=== PATIENT | male | born 1945 | race Caucasian/White ===

== ENCOUNTER → 2018-02-05 | Outpatient (CLI) | payer OTHER, BC ==
[2018-02-05 12:51] LABS: BLOOD UREA NITROGEN 17 mg/dl (7-18); CALCIUM 9.2 mg/dl (8.5-10.1); CARBON DIOXIDE 28 mmol/L (21-32); CREATININE 1.16 mg/dl (0.60-1.40); GLUCOSE 121 mg/dl (70-99); POTASSIUM 4.1 mmol/L (3.5-5.1); SODIUM 138 mmol/L (136-145)
[2018-02-05 12:56] LABS: HEMOGLOBIN A1C 6.4 % (4.5-5.6)
== END | disposition home or self-care (01) ==
LOC: C.LABPBG 10:41
PROVIDERS: ATTEND Internal Medicine Geriatric Medicine
DX: I10 Essential (primary) hypertension (principal); R73.9 Hyperglycemia, unspecified

== ENCOUNTER → 2018-03-18 | Outpatient (CLI) | payer OTHER, BC ==
[2018-03-18 17:07] LABS: BASO % 0.5 %; BASO ABS # 0.01 K/uL (0-0.2); EOS % 2.3 %; EOS ABS # 0.05 K/uL (0-0.5); HEMATOCRIT 40.3 % (42-52); HEMOGLOBIN 13.6 g/dL (14.0-18.0); IG# 0.01 K/uL (0.00-0.02); LYMPH % 19.4 %; LYMPH ABS # 0.43 K/uL (1.2-3.4); MEAN CELL VOLUME 86.3 fL (80-100); MEAN CORPUSCULAR HEMOGLOBIN 29.1 pg (25-34); MEAN CORPUSCULAR HGB CONC 33.7 g/dl (32-36); MEAN PLATELET VOLUME 10.5 fL (7.4-10.4); MONO % 19.8 %; MONO ABS # 0.44 K/uL (0.11-0.59); NEUT % 57.5 %; NEUT ABS # 1.28 K/uL (1.4-6.5); PLATELET COUNT 144 K/uL (130-400); RED CELL DISTRIBUTION WIDTH CV 13.3 % (11.5-14.5); WHITE BLOOD COUNT 2.22 K/uL (4.8-10.8)
== END | disposition home or self-care (01) ==
LOC: C.LABPBG 11:53
PROVIDERS: ATTEND Family Medicine
DX: R68.83 Chills (without fever) (principal); R61 Generalized hyperhidrosis; W57.XXXA Bitten or stung by nonvenomous insect and other nonvenomous arthropods, initial encounter

== ENCOUNTER 2022-07-03 09:13 | Inpatient (IN) ==
[2022-07-03] MEDS ORDERED: SODIUM CHLORIDE 0.9% 1000ML 1,000 ML IV ONE (09:29)
[2022-07-03 09:46] LABS: Hematocrit (blood only) 39.8 % (40.1-51.0); Hemoglobin 12.8 g/dl (14.0-18.0); Mean Corpuscular Hemoglobin 29.5 pg (25.0-34.0); Mean Corpuscular Hgb Conc 32.2 g/dL (32.0-36.0); Mean Corpuscular Volume 91.7 fL (80.0-100.0); Mean Platelet Volume 10.6 fL (9.4-12.4); Platelet Count 177 K/uL (130-400); RDW Coefficient of Variation 13.8 % (11.5-14.5); RDW Standard Deviation 47.1 fL (36.4-46.3); Red Blood Count 4.34 M/uL (4.63-6.08); White Blood Count 7.23 K/ul (4.8-10.8)
[2022-07-03 09:55] LABS: Prothrombin Time 10.9 Seconds (9.0-12.0)
[2022-07-03] MEDS ORDERED: cefTRIAXone SODIUM 2,000 MG/70 ML BAG IV STA (09:56)
[2022-07-03 10:02] LABS: Albumin Globulin Ratio 1.2 (0.9-2); Albumin Level 3.5 gm/dl (3.4-5.0); Bilirubin,Total 0.5 mg/dl (0.2-1.0); Calcium 8.4 mg/dl (8.5-10.1); Creatinine Clr Calc Pharmacy 19.5 ml/min; Est GFR (African American) 16.2 ml/min; Magnesium 1.2 mg/dl (1.7-2.4); Potassium 4.8 mmol/L (3.5-5.1); Total Protein 6.5 gm/dl (6.0-8.3)
--- NOTE | 2022-07-03 10:02 | XRay Report ---
SINGLE VIEW CHEST CLINICAL HISTORY: Cough and dyspnea. FINDINGS: An AP, portable, upright chest radiograph is obtained. No prior studies are available for c omparison at the time of dictation. The heart is enlarged noting atherosclerotic calcification of the thoracic aorta. The pulmonary vasculature is noncongested. There is left basilar consolidation. Scar ring/atelectasis is seen at the right lung base. Question a small left pleural effusion. No pneumotho rax is seen. The skeletal structures are osteopenic. The bony thorax is grossly intact. IMPRESSION: 1. Cardiomegaly without radiographic evidence of congestive failure. 2. There is left basilar consolidation. Correlate clinically for evidence of pneumonia/aspiration pne umonitis. Radiographic follow-up to resolution is recommended. ACT 112: Negative or not required by law. Electronically signed by: Andi Andrews M.D. 07/03/2022 10:00 AM
[2022-07-03 10:08] LABS: Troponin I High Sensitivity 12.2 pg/ml (0-20)
[2022-07-03 10:15] LABS: Basophils # (auto) 0.01 K/uL (0-0.2); Basophils % (auto) 0.1 %; Echinocytes 1+; Immature Granulocytes # (auto) 0.03 K/uL (0.00-0.02); Immature Granulocytes % (auto) 0.4 %; Lymphocytes # (auto) 0.63 K/uL (1.2-3.4); Lymphocytes % (auto) 8.7 %; Monocytes # (auto) 0.65 K/uL (0.24-0.82); Neutrophils # (auto) 5.91 K/uL (1.4-6.5); Neutrophils % (auto) 81.8 %
[2022-07-03 10:19] LABS: iSTAT Arterial Blood Gas pCO2 30 mmHg (35-46); iSTAT Arterial Blood Gas pH 7.33 (7.35-7.45)
[2022-07-03 10:20] LABS: iSTAT Arterial Blood Gas HCO3 16 meg/L (19-24); iSTAT Arterial Blood Gas pO2 71 mmHg (80-95); iSTAT Carbon Dioxide 16 mmol/L (24-31); iSTAT Sample Type Arterial
[2022-07-03] MEDS ORDERED: ACETAMINOPHEN 1,000 MG/100 ML VIAL IV STA (10:32)
--- NOTE | 2022-07-03 10:32 | Emergency Department Note ---
History of Present Illness General Chief complaint: Shortness of Breath/Dyspnea Stated complaint: SOB, COUGH, SORE THROAT Time Seen by Provider: 07/03/22 09:29 Source: patient Mode of arrival: wheelchair Limitations: physical limitation History of Present Illness Provider complaint: Shortness of breath, cough, sore throat Onset (ago): day(s) 5 Maximum Pain Intensity: 6 This is a 76-year-old male presents emergency department due to concern for cough, sore throat, and increased shortness of breath. Patient states he has been sick for 5 days. Patient does have some difficulty answering as he is very tachypneic with increased work of breathing and appears very short of breath. Patient denied any history of asthma, COPD, or prior tobacco abuse. He denies any history of heart problems. Patient states he does not wear oxygen at home. Patient states he has not had any nasal congestion or rhinorrhea. He states his cough is nonproductive however he does feel short of breath. Patient states he also feels weak and lightheaded and admits that he has hardly had anything to eat in the last 5 days. He denies any known sick contacts. I was overhead emergently to the patient's room due to concern for hypoxia, hypotension, tachypnea, increased work of breathing, and overall poor initial impression. RT was immediately contacted for additional respiratory support as patient was rucker in color, tachypneic, with increased work of breathing and sats were 89 to 90% on nonrebreather at 12 to 15 L/min. Pt seen during a time of high acuity and national emergency pandemic while wearing PPE. Home Medications Medication Instructions Recorded Confirmed Type omeprazole 20 mg tablet,delayed 20 mg PO DAILY #90 tabs 09/11/21 01/02/22 Rx release lisinopril 40 mg tablet 40 mg PO DAILY #90 tabs 11/20/21 01/02/22 Rx simvastatin 20 mg tablet 20 mg PO QPM #90 tabs 11/20/21 01/02/22 Rx metoprolol tartrate 50 mg tablet 50 mg PO BID #180 tabs 01/11/22 Rx amlodipine 10 mg tablet 10 mg PO DAILY #90 tabs 03/13/22 Rx allopurinol 100 mg tablet 200 mg PO DAILY #180 tabs 04/12/22 Rx Allergies Allergy/AdvReac Type Severity Reaction Status Date / Time No Known Drug Allergies Allergy Verified 01/02/22 13:02 Past Med/Surg History Medical History Anemia Chronic kidney disease, stage 3 (moderate) Diabetes mellitus, type 2 Dyslipidemia Gastroesophageal reflux disease Gout Hypertension Tubular adenoma of colon Surgical History H/O esophagogastroduodenoscopy (07/2014) gastric polyps, reflux esophagitis, hiatal hernia Status post surgery Palatoplasty for cleft palate Family History Brother Atrial fibrillation Sleep apnea BPH (benign prostatic hyperplasia) Brother Smoker Bladder cancer Mother , age 93 Coronary heart disease Father , age 85 Coronary heart disease Myocardial infarction Brother No problems noted. Sister No problems noted. Denies family history of Ovarian cancer Prostate cancer Breast cancer Colorectal cancer Social History Smoking Status: Never smoker Tobacco Type: Smokeless Tobacco (Dip or Chew) Age Started Using Tobacco: 13; Second Hand Exposure: No; Hx Alcohol Use: Yes Alcohol type: beer Alcohol type Comment: 10-14 Alcohol Intake Frequency: 2-4 x/Month Hx Substance Use: No Preferred Language: Greenlandic Communication Ability: Effective Visual Impairment: Limited Hearing Ability: Normal [employer] Sales Representative Required: No Beliefs That Will Affect Care: None marital status: Current Living Situation: Spouse current occupational status: employed and retired current occupation: accounting How many Children do You have: 2 Feels Safe at Home: Yes Childhood Exposure to Second-Hand Smoke: No caffeine: No during the past year weight has: remained stable Dental Care, Regularly: Yes Physical Activity Frequency: 3-4 Times per Week Seatbelt Use: always Sunscreen Use: No Assistive Devices: None Review of Systems See HPI for pertinent positives & negatives. All systems reviewed & are unremarkable except as noted in HPI & below Physical Exam Vital Signs Vital Signs - 24 hr 07/03/22 09:20 07/03/22 09:53 07/03/22 09:40 Temperature 37.1 C Temperature Source Oral Pulse Rate 77 120 H Pulse Rate from SpO2 Sensor Pulse Rhythm Regular Pulse Strength Normal Respiratory Rate 32 H 26 H Respiratory Effort / Characteristics Labored Spontaneous Respiratory Depth Normal Respiratory Pattern Tachypnea Regular Blood Pressure 75/41 L 94/45 L Blood Pressure Mean 52 61 Blood Pressure Position Sitting Pulse Oximetry 88 L 94 Oxygen Delivery Method Non-rebreather Oxygen Flow Rate 15 Fraction of Inspired Oxygen 100 Sepsis Recent Fever Within 48 Hours No Sepsis New/Unexplained Change in Mental Status No Sepsis Action Taken by Nursing Physician Notified 07/03/22 09:40 07/03/22 09:47 07/03/22 09:47 Temperature Temperature Source Pulse Rate 79 73 Pulse Rate from SpO2 Sensor 78 73 Pulse Rhythm Pulse Strength Respiratory Rate 27 H 29 H Respiratory Effort / Characteristics Respiratory Depth Respiratory Pattern Blood Pressure 76/49 L Blood Pressure Mean 58 Blood Pressure Position Pulse Oximetry 91 94 Oxygen Delivery Method Oxygen Flow Rate Fraction of Inspired Oxygen Sepsis Recent Fever Within 48 Hours Sepsis New/Unexplained Change in Mental Status Sepsis Action Taken by Nursing 07/03/22 09:49 07/03/22 09:49 07/03/22 09:50 Temperature Temperature Source Pulse Rate 77 78 Pulse Rate from SpO2 Sensor 78 77 Pulse Rhythm Pulse Strength Respiratory Rate 23 26 H Respiratory Effort / Characteristics Respiratory Depth Respiratory Pattern Blood Pressure 84/45 L Blood Pressure Mean 58 Blood Pressure Position Pulse Oximetry 95 96 Oxygen Delivery Method Oxygen Flow Rate Fraction of Inspired Oxygen Sepsis Recent Fever Within 48 Hours Sepsis New/Unexplained Change in Mental Status Sepsis Action Taken by Nursing 07/03/22 09:44 07/03/22 10:00 07/03/22 10:00 Temperature Temperature Source Pulse Rate 81 Pulse Rate from SpO2 Sensor 75 Pulse Rhythm Pulse Strength Respiratory Rate 22 Respiratory Effort / Characteristics Respiratory Depth Respiratory Pattern Blood Pressure 82/68 L Blood Pressure Mean 72 Blood Pressure Position Pulse Oximetry 98 95 Oxygen Delivery Method BiPAP Oxygen Flow Rate Fraction of Inspired Oxygen Sepsis Recent Fever Within 48 Hours Sepsis New/Unexplained Change in Mental Status Sepsis Action Taken by Nursing 07/03/22 10:06 07/03/22 10:06 07/03/22 10:15 Temperature Temperature Source Pulse Rate 79 Pulse Rate from SpO2 Sensor 79 Pulse Rhythm Pulse Strength Respiratory Rate 19 Respiratory Effort / Characteristics Respiratory Depth Respiratory Pattern Blood Pressure 103/60 105/53 L Blood Pressure Mean 74 70 Blood Pressure Position Pulse Oximetry 97 Oxygen Delivery Method Oxygen Flow Rate Fraction of Inspired Oxygen Sepsis Recent Fever Within 48 Hours Sepsis New/Unexplained Change in Mental Status Sepsis Action Taken by Nursing 07/03/22 10:15 07/03/22 10:31 07/03/22 10:31 Temperature Temperature Source Pulse Rate 79 84 Pulse Rate from SpO2 Sensor 79 84 Pulse Rhythm Pulse Strength Respiratory Rate 28 H 26 H Respiratory Effort / Characteristics Respiratory Depth Respiratory Pattern Blood Pressure 113/74 Blood Pressure Mean 87 Blood Pressure Position Pulse Oximetry 98 99 Oxygen Delivery Method Oxygen Flow Rate Fraction of Inspired Oxygen Sepsis Recent Fever Within 48 Hours Sepsis New/Unexplained Change in Mental Status Sepsis Action Taken by Nursing 07/03/22 10:45 07/03/22 10:45 Temperature Temperature Source Pulse Rate 76 Pulse Rate from SpO2 Sensor 76 Pulse Rhythm Pulse Strength Respiratory Rate 26 H Respiratory Effort / Characteristics Respiratory Depth Respiratory Pattern Blood Pressure 82/43 L Blood Pressure Mean 56 Blood Pressure Position Pulse Oximetry 98 Oxygen Delivery Method Oxygen Flow Rate Fraction of Inspired Oxygen Sepsis Recent Fever Within 48 Hours Sepsis New/Unexplained Change in Mental Status Sepsis Action Taken by Nursing GENERAL: alert, ill appearing, well nourished, severe distress, non-toxic EYE EXAM: normal conjunctiva, PERRL and EOM's grossly intact OROPHARYNX: no exudate, no erythema, lips, buccal mucosa, and tongue normal and mucous membranes are dry NECK: supple, no nuchal rigidity, no adenopathy, non-tender LUNGS: Tachypnea, increased work of breathing, hypoxic on nonrebreather at 89%, coarse lung sounds bilaterally worse on the left, no wheezing HEART: no murmurs, S1 normal and S2 normal ABDOMEN: abdomen soft, non-tender, normo-active bowel sounds, no masses, no rebound or guarding. BACK: Back is symmetrical on inspection and there is no deformity, no midline tenderness, no CVA tenderness. SKIN: no rashes and no bruising, general rucker color UPPER EXTREMITIES: upper extremities are grossly normal. FROM, nml pulses b/l. LOWER EXTREMITIES: No pitting edema. FROM, nml pulses b/l. NEURO EXAM: Normal sensorium, cranial nerves II-XII grossly intact, normal speech and very short phrases due to increased work of breathing, no gross weakness of arms, no gross weakness of legs. Gross sensation intact. Course Course 951: Patient now improving while on BiPAP. Blood pressure slowly improving with IV fluids running. 1022: Patient updated on results thus far. Patient's color markedly improved, work of breathing decreased, tachypnea increased, and patient maintaining sats in the mid 90s. 1050: Patient appears more relaxed, work of breathing significantly improved, tachypnea nearly resolved. I updated patient on findings and need for additi onal inpatient hospitalization. Administered Medications Albuterol (Albut/Ipratrop 3mg/0.5mg Neb 3 Ml Vial) 3 ml NEB Q4R PRN; Protocol PRN Reason: Shortness Of Breath Or Wheezing Stop: 08/02/22 13:25 Last Admin: 07/04/22 09:18 Dose: 3 ml Documented By: Admin: 07/03/22 23:30 Dose: 3 ml Documented By: Admin: 07/03/22 17:08 Dose: 3 ml Documented By: JAMES Allopurinol (Allopurinol 100 Mg Tab) 200 mg PO DAILY RIC Stop: 08/03/22 08:59 Last Admin: 07/04/22 08:51 Dose: 200 mg Documented By: YO Heparin Sodium (Porcine) (Heparin Sod 5,000 Unit/0.5 Ml Vial) 5,000 units SQ Q12 RIC Stop: 08/02/22 20:59 Last Admin: 07/04/22 08:49 Dose: Not Given Documented By: Admin: 07/03/22 22:06 Dose: Not Given Documented By: MOHINDER Sodium Chloride (Nss 1000ml) 1,000 mls @ 125 mls/hr IV .Q8H RIC Stop: 08/02/22 10:44 Last Admin: 07/04/22 11:35 Dose: 125 mls/hr Documented By: Infusion: 07/04/22 11:32 Dose: 125 mls/hr Documented By: Admin: 07/04/22 03:32 Dose: 125 mls/hr Documented By: Infusion: 07/04/22 03:32 Dose: 125 mls/hr Documented By: Admin: 07/03/22 19:54 Dose: 125 mls/hr Documented By: Infusion: 07/03/22 18:44 Dose: 125 mls/hr Documented By: Admin: 07/03/22 10:44 Dose: 125 mls/hr Documented By: MIRIAM Ceftriaxone Sodium 2,000 mg/ (Dextrose) 70 mls @ 100 mls/hr IV DAILY RIC; Protocol Stop: 07/11/22 08:59 Last Infusion: 07/04/22 10:41 Dose: 0 mls/hr Documented By: Admin: 07/04/22 08:48 Dose: 100 mls/hr Documented By: YO Azithromycin 500 mg/ Dextrose 255 mls @ 125 mls/hr IV QAM [facility] Stop: 07/11/22 08:59 Last Infusion: 07/04/22 10:41 Dose: 0 mls/hr Documented By: Admin: 07/04/22 08:47 Dose: 125 mls/hr Documented By: YO Dexamethasone 6 mg/ Syringe 1.5 mls @ 1 mls/min IV Q24H RIC Stop: 08/03/22 08:59 Last Admin: 07/04/22 10:16 Dose: 1 mls/min Documented By: YO Insulin Aspart (Insulin Aspart Per Unit) 0 units SC ACHS [facility] Stop: 08/02/22 13:25 Last Admin: 07/04/22 12:01 Dose: 6 units Documented By: YO Co-signed By: JACKSON Admin: 07/04/22 08:36 Dose: 4 units Documented By: YO Co-signed By: JACKSON Admin: 07/03/22 21:49 Dose: 5 units Documented By: MOHINDER Co-signed By: OLMAN Admin: 07/03/22 16:20 Dose: Not Given Documented By: Admin: 07/03/22 16:05 Dose: 2 units Documented By: AZALIA Co-signed By: GERMAN Insulin Human NPH (Insulin Human Nph) 20 units SC DAILY [facility] Stop: 08/03/22 08:59 Last Admin: 07/04/22 10:17 Dose: 20 units Documented By: YO Co-signed By: SHAN Miscellaneous (Remove Nicoderm Patch) 1 each N/A DAILY@0859 [facility] Stop: 08/03/22 08:58 Last Admin: 07/04/22 08:47 Dose: 1 each Documented By: YO Nicotine (Nicotine 21 Mg/24 Hr Tdsy) 21 mg TD QAM [facility] Stop: 08/02/22 18:59 Last Admin: 07/04/22 08:50 Dose: 21 mg Documented By: Admin: 07/03/22 19:56 Dose: 21 mg Documented By: MOHINDER Pantoprazole Sodium (Pantoprazole 40 Mg Tab) 40 mg PO Q24H RIC Stop: 08/02/22 22:14 Last Admin: 07/03/22 22:44 Dose: 40 mg Documented By: MOHINDER Phenol (Chloraseptic 1.4% Soln 180 Ml Btl) 2 sprays MT Q2H PRN PRN Reason: Sore Throat Stop: 08/02/22 14:41 Last Admin: 07/03/22 18:45 Dose: 2 sprays Documented By: Admin: 07/03/22 15:09 Dose: 2 sprays Documented By: AZALIA Simvastatin (Simvastatin 20 Mg Tab) 20 mg PO QPM RIC Stop: 08/02/22 20:59 Last Admin: 07/03/22 22:05 Dose: 20 mg Documented By: MOHINDER Discontinued Medications Dexamethasone Sodium Phosphate (DexamethasonePf 10 Mg/Ml Vial) 6 mg IV NOW ONE Stop: 07/03/22 11:51 Last Admin: 07/03/22 12:53 Dose: 6 mg Documented By: CANDI Sodium Chloride (Nss 1000ml) 1,000 mls @ 999 mls/hr IV .Q1H1M ONE Stop: 07/03/22 10:29 Last Infusion: 07/03/22 11:00 Dose: 0 mls/hr Documented By: Admin: 07/03/22 09:29 Dose: 999 mls/hr Documented By: MIRIAM Ceftriaxone Sodium (Rocephin) 2,000 mg in 70 mls @ 140 mls/hr IV NOW STA Stop: 07/03/22 10:25 Last Infusion: 07/03/22 11:00 Dose: 0 mls/hr Documented By: Admin: 07/03/22 10:17 Dose: 140 mls/hr Documented By: MIRIAM Magnesium Sulfate/Dextrose (Magnesium Sulfate / D5w) 1 gm in 100 mls @ 100 mls/hr IV Q1H RIC Stop: 07/03/22 12:14 Last Infusion: 07/03/22 13:27 Dose: 0 mls/hr Documented By: Admin: 07/03/22 11:12 Dose: 100 mls/hr Documented By: Infusion: 07/03/22 11:12 Dose: 100 mls/hr Documented By: Admin: 07/03/22 10:44 Dose: 100 mls/hr Documented By: MIRIAM Acetaminophen (Ofirmev) 1,000 mg in 100 mls @ 400 mls/hr IV NOW STA Stop: 07/03/22 10:46 Last Infusion: 07/03/22 10:59 Dose: 0 mls/hr Documented By: Admin: 07/03/22 10:44 Dose: 400 mls/hr Documented By: MIRIAM Azithromycin 500 mg/ Dextrose 255 mls @ 127.5 mls/hr IV NOW STA Stop: 07/03/22 12:43 Last Infusion: 07/03/22 15:11 Dose: 0 mls/hr Documented By: Admin: 07/03/22 11:12 Dose: 127.5 mls/hr Documented By: CANDI Sodium Chloride (Sodium Chloride 0.65% Na Soln 45 Ml ([place]oard)) Confirm Administered Dose 225 sprays .ROUTE .STK-MED ONE Stop: 07/04/22 08:11 Last Admin: 07/04/22 08:47 Dose: 225 sprays Documented By: YO Critical Care Time Critical Care Time: Yes Total Critical Care Time: 49 Critical care of 49 min performed to assess and manage high likelihood of life- threatening hypoxia and hypotension, involving labs and imaging performed with assessment to evaluate hypoxia and hypotension diagnosis with frequent reassessment. This time includes bedside time, treatment discussions with patient/family/consultants, documentation time and excludes procedure time. Medical Decision Making Differential Diagnosis Differential diagnoses includes but is not limited to pneumonia, bronchitis, COPD/Asthma exacerbation, pneumothorax, pulmonary embolism, congestive heart failure, acute coronary syndrome Medical Records Attestation: I reviewed the patient's medical records. Home Medications Current Medication List: was personally reviewed by me Laboratory Data Attestation: I reviewed the patient's lab results. Result diagrams: 07/04/22 06:17 07/04/22 06:17 Lab Results 07/03/22 07/03/22 07/03/22 Range/Units 09:20 09:20 09:20 WBC 7.23 (4.8-10.8) K/ul RBC 4.34 L (4.63-6.08) M/uL Hgb 12.8 L (14.0-18.0) g/dl Hct 39.8 L (40.1-51.0) % MCV 91.7 (80.0-100.0) fL MCH 29.5 (25.0-34.0) pg MCHC 32.2 (32.0-36.0) g/dL RDW Std Deviation 47.1 H (36.4-46.3) fL RDW Coeff of Amara 13.8 (11.5-14.5) % Plt Count 177 (130-400) K/uL MPV 10.6 (9.4-12.4) fL Immature Gran % (Auto) 0.4 % Neut % (Auto) 81.8 % Lymph % (Auto) 8.7 % [place] % (Auto) 9.0 % Eos % (Auto) 0.0 % Baso % (Auto) 0.1 % Neut # (Auto) 5.91 (1.4-6.5) K/uL Lymph # (Auto) 0.63 L (1.2-3.4) K/uL [place] # (Auto) 0.65 (0.24-0.82) K/uL Eos # (Auto) 0.00 (0-0.50) K/uL Baso # (Auto) 0.01 (0-0.2) K/uL Immature Gran # (Auto) 0.03 H (0.00-0.02) K/uL Echinocytes 1+ PT 10.9 (9.0-12.0) Seconds INR 1.0 (0.9-1.1) Specimen Type POC pH (7.35-7.45) POC pCO2 (35-46) mmHg POC pO2 (80-95) mmHg POC HCO3 (19-24) anju/L POC Total CO2 (24-31) mmol/L POC Base Excess (-9-1.8) anju/L Sodium (136-145) mmol/L Potassium (3.5-5.1) mmol/L Chloride (98-107) mmol/L Carbon Dioxide (21-32) mmol/L Anion Gap (3-11) BUN (6-23) mg/dl Creatinine (0.6-1.4) mg/dl Est Cr Clr Drug Dosing ml/min Est GFR ( Amer) ml/min Est GFR (Non-Af Amer) ml/min BUN/Creatinine Ratio (10-20) Glucose (70-99(Fasting)) mg/dl Lactate (0.4-2.0) mmol/L Calcium (8.5-10.1) mg/dl Magnesium (1.7-2.4) mg/dl Total Bilirubin (0.2-1.0) mg/dl AST (13-39) U/L ALT (7-52) U/L Alkaline Phosphatase (34-104) U/L Troponin I High Sens (0-20) pg/ml B-Natriuretic Peptide (0-100) pg/ml Total Protein (6.0-8.3) gm/dl Albumin (3.4-5.0) gm/dl Globulin (2.5-4.0) gm/dl Albumin/Globulin Ratio (0.9-2) Lipase (11-82) U/L Procalcitonin 43.84 H (0-0.5) ng/ml TSH (0.300-4.500) uIu/ml Adenovirus (PCR) (NotDetected) B. pertussis DNA (PCR) (NotDetected) B.parapertussis DNA PCR (NotDetected) C. pneumoniae DNA (PCR) (NotDetected) Coronavirus OC43 (PCR) (NotDetected) Coronavirus HKU1 (PCR) (NotDetected) Coronavirus 229E (PCR) (NotDetected) SARS-CoV-2 (PCR) (NotDetected) Coronavirus NL63 (PCR) (NotDetected) Human Metapneumovir PCR (NotDetected) Influenza Type A (PCR) (NotDetected) Influenza Type B (PCR) (NotDetected) M. pneumoniae (PCR) (NotDetected) Parainfluenza 1 (PCR) (NotDetected) Parainfluenza 2 (PCR) (NotDetected) Parainfluenza 3 (PCR) (NotDetected) Parainfluenza 4 (PCR) (NotDetected) RSV (PCR) (NotDetected) Entero/Rhino (PCR) (NotDetected) 07/03/22 07/03/22 07/03/22 Range/Units 09:20 09:20 09:30 WBC (4.8-10.8) K/ul RBC (4.63-6.08) M/uL Hgb (14.0-18.0) g/dl Hct (40.1-51.0) % MCV (80.0-100.0) fL MCH (25.0-34.0) pg MCHC (32.0-36.0) g/dL RDW Std Deviation (36.4-46.3) fL RDW Coeff of Amara (11.5-14.5) % Plt Count (130-400) K/uL MPV (9.4-12.4) fL Immature Gran % (Auto) % Neut % (Auto) % Lymph % (Auto) % [place] % (Auto) % Eos % (Auto) % Baso % (Auto) % Neut # (Auto) (1.4-6.5) K/uL Lymph # (Auto) (1.2-3.4) K/uL [place] # (Auto) (0.24-0.82) K/uL Eos # (Auto) (0-0.50) K/uL Baso # (Auto) (0-0.2) K/uL Immature Gran # (Auto) (0.00-0.02) K/uL Echinocytes PT (9.0-12.0) Seconds INR (0.9-1.1) Specimen Type POC pH (7.35-7.45) POC pCO2 (35-46) mmHg POC pO2 (80-95) mmHg POC HCO3 (19-24) anju/L POC Total CO2 (24-31) mmol/L POC Base Excess (-9-1.8) anju/L Sodium 137 (136-145) mmol/L Potassium 4.8 (3.5-5.1) mmol/L Chloride 105 (98-107) mmol/L Carbon Dioxide 19 L (21-32) mmol/L Anion Gap 13 H (3-11) BUN 47 H (6-23) mg/dl Creatinine 3.93 H (0.6-1.4) mg/dl Est Cr Clr Drug Dosing 19.5 ml/min Est GFR ( Amer) 16.2 ml/min Est GFR (Non-Af Amer) 14.0 ml/min BUN/Creatinine Ratio 12.0 (10-20) Glucose 164 H (70-99(Fasting)) mg/dl Lactate (0.4-2.0) mmol/L Calcium 8.4 L (8.5-10.1) mg/dl Magnesium 1.2 L (1.7-2.4) mg/dl Total Bilirubin 0.5 (0.2-1.0) mg/dl AST 19 (13-39) U/L ALT 14 (7-52) U/L Alkaline Phosphatase 44 (34-104) U/L Troponin I High Sens 12.2 (0-20) pg/ml B-Natriuretic Peptide 302 H (0-100) pg/ml Total Protein 6.5 (6.0-8.3) gm/dl Albumin 3.5 (3.4-5.0) gm/dl Globulin 3.0 (2.5-4.0) gm/dl Albumin/Globulin Ratio 1.2 (0.9-2) Lipase 17 (11-82) U/L Procalcitonin (0-0.5) ng/ml TSH 2.655 (0.300-4.500) uIu/ml Adenovirus (PCR) (NotDetected) B. pertussis DNA (PCR) (NotDetected) B.parapertussis DNA PCR (NotDetected) C. pneumoniae DNA (PCR) (NotDetected) Coronavirus OC43 (PCR) (NotDetected) Coronavirus HKU1 (PCR) (NotDetected) Coronavirus 229E (PCR) (NotDetected) SARS-CoV-2 (PCR) (NotDetected) Coronavirus NL63 (PCR) (NotDetected) Human Metapneumovir PCR (NotDetected) Influenza Type A (PCR) (NotDetected) Influenza Type B (PCR) (NotDetected) M. pneumoniae (PCR) (NotDetected) Parainfluenza 1 (PCR) (NotDetected) Parainfluenza 2 (PCR) (NotDetected) Parainfluenza 3 (PCR) (NotDetected) Parainfluenza 4 (PCR) (NotDetected) RSV (PCR) (NotDetected) Entero/Rhino (PCR) (NotDetected) 07/03/22 07/03/22 07/03/22 Range/Units 09:37 09:48 10:10 WBC (4.8-10.8) K/ul RBC (4.63-6.08) M/uL Hgb (14.0-18.0) g/dl Hct (40.1-51.0) % MCV (80.0-100.0) fL MCH (25.0-34.0) pg MCHC (32.0-36.0) g/dL RDW Std Deviation (36.4-46.3) fL RDW Coeff of Amara (11.5-14.5) % Plt Count (130-400) K/uL MPV (9.4-12.4) fL Immature Gran % (Auto) % Neut % (Auto) % Lymph % (Auto) % [place] % (Auto) % Eos % (Auto) % Baso % (Auto) % Neut # (Auto) (1.4-6.5) K/uL Lymph # (Auto) (1.2-3.4) K/uL [place] # (Auto) (0.24-0.82) K/uL Eos # (Auto) (0-0.50) K/uL Baso # (Auto) (0-0.2) K/uL Immature Gran # (Auto) (0.00-0.02) K/uL Echinocytes PT (9.0-12.0) Seconds INR (0.9-1.1) Specimen Type Arterial POC pH 7.33 L (7.35-7.45) POC pCO2 30 L (35-46) mmHg POC pO2 71 L (80-95) mmHg POC HCO3 16 L (19-24) anju/L POC Total CO2 16 L (24-31) mmol/L POC Base Excess -10.0 L (-9-1.8) anju/L Sodium (136-145) mmol/L Potassium (3.5-5.1) mmol/L Chloride (98-107) mmol/L Carbon Dioxide (21-32) mmol/L Anion Gap (3-11) BUN (6-23) mg/dl Creatinine (0.6-1.4) mg/dl Est Cr Clr Drug Dosing ml/min Est GFR ( Amer) ml/min Est GFR (Non-Af Amer) ml/min BUN/Creatinine Ratio (10-20) Glucose (70-99(Fasting)) mg/dl Lactate 3.4 H* (0.4-2.0) mmol/L Calcium (8.5-10.1) mg/dl Magnesium (1.7-2.4) mg/dl Total Bilirubin (0.2-1.0) mg/dl AST (13-39) U/L ALT (7-52) U/L Alkaline Phosphatase (34-104) U/L Troponin I High Sens (0-20) pg/ml B-Natriuretic Peptide (0-100) pg/ml Total Protein (6.0-8.3) gm/dl Albumin (3.4-5.0) gm/dl Globulin (2.5-4.0) gm/dl Albumin/Globulin Ratio (0.9-2) Lipase (11-82) U/L Procalcitonin (0-0.5) ng/ml TSH (0.300-4.500) uIu/ml Adenovirus (PCR) Not Detected (NotDetected) B. pertussis DNA (PCR) Not Detected (NotDetected) B.parapertussis DNA PCR Not Detected (NotDetected) C. pneumoniae DNA (PCR) Not Detected (NotDetected) Coronavirus OC43 (PCR) Not Detected (NotDetected) Coronavirus HKU1 (PCR) Not Detected (NotDetected) Coronavirus 229E (PCR) Not Detected (NotDetected) SARS-CoV-2 (PCR) DETECTED A* (NotDetected) Coronavirus NL63 (PCR) Not Detected (NotDetected) Human Metapneumovir PCR Not Detected (NotDetected) Influenza Type A (PCR) Not Detected (NotDetected) Influenza Type B (PCR) Not Detected (NotDetected) M. pneumoniae (PCR) Not Detected (NotDetected) Parainfluenza 1 (PCR) Not Detected (NotDetected) Parainfluenza 2 (PCR) Not Detected (NotDetected) Parainfluenza 3 (PCR) Not Detected (NotDetected) Parainfluenza 4 (PCR) Not Detected (NotDetected) RSV (PCR) Not Detected (NotDetected) Entero/Rhino (PCR) Not Detected (NotDetected) Imaging Data Radiologist's Impression: Chest X-Ray 07/03/22 09:29 SINGLE VIEW CHEST CLINICAL HISTORY: Cough and dyspnea. FINDINGS: An AP, portable, upright chest radiograph is obtained. No prior studies are available for comparison at the time of dictation. The heart is enlarged noting atherosclerotic calcification of the thoracic aorta. The pulmonary vasculature is noncongested. There is left basilar consolidation. S carring/atelectasis is seen at the right lung base. Question a small left pleural effusion. No pneumothorax is seen. The skeletal structures are osteopenic. The bony thorax is grossly intact. IMPRESSION: 1. Cardiomegaly without radiographic evidence of congestive failure. 2. There is left basilar consolidation. Correlate clinically for evidence of pneumonia/aspiration pneumonitis. Radiographic follow-up to resolution is recommended. ACT 112: Negative or not required by law. Electronically signed by: Andi Andrews M.D. 07/03/2022 10:00 AM ECG Data Attestation: I personally reviewed and interpreted this ECG as follows: Indication: + SOB/dyspnea Rate (beats per minute): 77 Rhythm: + normal sinus ECG Intervals/blocks: + Normal QRS and + Normal QT ECG [place]: + Normal ECG ST segments: + Nonspecific ST abnormalities MDM Narrative An order was placed for continuous cardiac monitoring. The monitor shows a rate of _92__ with __normal sinus_ rhythm. This is a 76-year-old male presents emergency department due to concern for increased shortness of breath and illness that he been evolving over the last 5 days. Patient brought urgently back to room by nursing staff after patient noted to be significantly hypoxic as well as hypotensive. I was overhead urgently to the room as the patient was still hypoxic on a nonrebreather and still significantly hypotensive. They were establishing IV access at that time to draw labs and initiate IV fluids. Patient markedly ill-appearing with significant increased work of breathing in addition to his hypoxia and hypotension although was still awake and alert. Patient clinically dry appearing, which seems to coincide with his reported decreased oral intake over the last 5 days. Patient denied any history of heart attack or heart failure so two 1 L boluses were started and IVs, and his blood pressure did slowly begin to improve. RT was contacted emergently to initiate high flow nasal cannula versus BiPAP therapy. We discussed concern given hypotension at this time, and they were advised to try to keep pressures at a minimum until patient's blood pressure was improved. Patient did require 100% FiO2 in order to maintain oxygen saturations above 92%. Patient with no prior history of COPD or pulmonary pathology. Patient found to have pneumonia on CT. Patient was r echecked multiple times given severity of illness and concern for evolving symptoms. His blood pressure did slowly continue to improve. After 2 L of IV fluid he was decreased to maintenance as blood work revealed NETTE with significant elevation of his creatinine, and we are hoping to avoid pushing the patient into pulmonary edema. Patient's troponin was normal, BNP elevated although this could be secondary to the NETTE. Case discussed with hospitalist for additional evaluation and management, UA still pending at that time as were blood cultures. Lactic acid did result elevated as was procalcitonin. Patient covered for community-acquired pneumonia given appearance on chest x-ray of a lobar pneumonia, however ultimately patient's bio fire did also reveal COVID-19. Decadron was added at that time given his hypoxia. Patient updated on all results. He verbalized understanding of the need for additional inpatient management. Impression & Plan Acute respiratory failure with hypoxia, Community acquired pneumonia, Hypotension, NETTE (acute kidney injury), Dehydration, COVID-19 Discharge Plan Visit Data Chief Complaint: Shortness of Breath/Dyspnea Stated Complaint: SOB, COUGH, SORE THROAT ED Provider: Mercedes Dangelo Discharge Problem: Acute respiratory failure with hypoxia, Community acquired pneumonia, Hypotension, NETTE (acute kidney injury), Dehydration, COVID-19 Patient Disposition: Admitted As Inpatient Discharge Instructions Interventions: ED Discharge Assessment Last Done: 07/03/22 14:51
[2022-07-03] MEDS: MAGNESIUM SULFATE / D5W 1 GM/100 ML BAG IV SCH ×2 (10:44→11:12)
[2022-07-03] MEDS: SODIUM CHLORIDE 0.9% 1000ML 1,000 ML IV SCH ×2 (10:44→19:54)
[2022-07-03] MEDS ORDERED: AZITHROMYCIN 500 MG in DEXTROSE 5% 250 ML IV STA (10:44)
[2022-07-03 11:20] LABS: Adenovirus PCR Not Detected (NotDetected); Bordetella parapertussis PCR Not Detected (NotDetected); Bordetella pertussis PCR Not Detected (NotDetected); Chlamydia pneumoniae PCR Not Detected (NotDetected); Coronavirus 229E PCR Not Detected (NotDetected); Coronavirus HKU1 PCR Not Detected (NotDetected); Coronavirus NL63 PCR Not Detected (NotDetected); Coronavirus OC43PCR Not Detected (NotDetected); Human Metapneumovirus PCR Not Detected (NotDetected); Influenza A PCR Not Detected (NotDetected); Influenza B PCR Not Detected (NotDetected); Mycoplasma pneumoniae PCR Not Detected (NotDetected); Parainfluenza Virus 1 PCR Not Detected (NotDetected); Parainfluenza Virus 2 PCR Not Detected (NotDetected); Parainfluenza Virus 3 PCR Not Detected (NotDetected); Parainfluenza Virus 4 PCR Not Detected (NotDetected); Respiratory Syncytial VirusPCR Not Detected (NotDetected); Rhinovirus/Enterovirus PCR Not Detected (NotDetected)
[2022-07-03 11:25] LABS: Coronavirus CoV-2 (COVID19)PCR DETECTED (NotDetected)
[2022-07-03] MEDS ORDERED: dexAMETHasone**PF** 10 MG/ML VIAL IV ONE (11:50)
--- NOTE | 2022-07-03 12:00 | History & Physical Report ---
Date of Service July 03, 2022 Assessment & Plan (1) Community acquired pneumonia: Plan: Procal is 44, and CXR indicates a LLL pneumonia, so I do think there is a bacterial component as well. - Continue ceftriaxone/azithromycin - MRSA swab ordered - BiPap and supplemental O2 PRN - DuoNebs PRN (2) COVID-19: Plan: First symptoms on Saturday, 06/29. Vaccinated and boosted. While picture is not entirely clear, I do think more of this is related to a bacterial process rather than Covid. - Hold on dexamethasone for now (3) Hypotension: Plan: BP was 75/41. Has come up to 100/60 with 1L bolus and second liter presently running. Due to both hypovolemia as well as sepsis. Lactate was 3.4 in the ER. - Monitor BP -> If drops, will given another liter of IV fluids, then consider ICU evaluation for temporary pressors. (4) ARF (acute renal failure): Plan: Baseline CKD Stage III with Cr. ~1.2. On admission, Cr up to 4. Likely pre-renal worsened by home ACEi. - Hold BP meds - IV fluids as above - UA ordered with microscopy - Renal/bladder u/s ordered (5) Diabetes mellitus, type 2: Plan: Last A1c 7.0% in 12/2021. Not on DM meds. - Sliding scale insulin (6) Hypertension: Plan: Now with hypotension. - Hold all HTN meds - Monitor (7) Gout: Plan: No flare at present. - Hold allopurinol while with NETTE. (8) Gastroesophageal reflux disease: Plan: - Continue PPI (9) DVT prophylaxis: Plan: Heparin 5,000 units SQ Q12h Conditional code - Patient adamant that he does not want intubation/ventilation even for 2-3 days. Explained that in code situation, he will not spontaneously breath, and we would need to secure airway to ensure oxygenation and no aspiration. In event of a code, he is willing to have short-term C RI/defibrillation (~5 minutes), and if we cannot resuscitate him, code would be stopped. He is in agreement with this plan. and daughter present for conversation. History of Present Illness Primary Care Provider: Yocasta Bunch, DO 76yo M w/ hx of HTN and DM who presents with community-acquired pneumonia. He reports he started to have a sore throat on Saturday and has not felt well since then. He has had decreased PO intake since Saturday as well as his throat has been too sore to eat or drink much. He has also had subjective chills, though no measured fever. He has had some cough, but not productive of sputum. He denies any chest pain, lightheadedness, dizziness, palpitations, nausea or vomiting, diarrhea, constipation, melena, hematochezia. He does have some urinary hesitancy, but does not think it has changed in the last few days. Denies any dysuria, polyuria, or other urinary issues. Allergies Allergy/AdvReac Type Severity Reaction Status Date / Time No Known Drug Allergies Allergy Verified 01/02/22 13:02 Home Medications Medication Instructions Recorded Confirmed Type omeprazole 20 mg tablet,delayed 20 mg PO DAILY #90 tabs 09/11/21 01/02/22 Rx release lisinopril 40 mg tablet 40 mg PO DAILY #90 tabs 11/20/21 01/02/22 Rx simvastatin 20 mg tablet 20 mg PO QPM #90 tabs 11/20/21 01/02/22 Rx metoprolol tartrate 50 mg tablet 50 mg PO BID #180 tabs 01/11/22 Rx amlodipine 10 mg tablet 10 mg PO DAILY #90 tabs 03/13/22 Rx allopurinol 100 mg tablet 200 mg PO DAILY #180 tabs 04/12/22 Rx Past Med/Surg History Medical History Anemia Chronic kidney disease, stage 3 (moderate) Diabetes mellitus, type 2 Dyslipidemia Gastroesophageal reflux disease Gout Hypertension Tubular adenoma of colon Surgical History H/O esophagogastroduodenoscopy (07/2014) gastric polyps, reflux esophagitis, hiatal hernia Status post surgery Palatoplasty for cleft palate Family History Brother Atrial fibrillation Sleep apnea BPH (benign prostatic hyperplasia) Brother Smoker Bladder cancer Mother , age 93 Coronary heart disease Father , age 85 Coronary heart disease Myocardial infarction Brother No problems noted. Sister No problems noted. Denies family history of Ovarian cancer Prostate cancer Breast cancer Colorectal cancer Social History Smoking Status: Never smoker Tobacco Type: Smokeless Tobacco (Dip or Chew) Age Started Using Tobacco: 13; Second Hand Exposure: No; Hx Alcohol Use: Yes Alcohol type: beer Alcohol type Comment: 10-14 Alcohol Intake Frequency: 2-4 x/Month Hx Substance Use: No Preferred Language: [place] Communication Ability: Effective Visual Impairment: Limited Hearing Ability: Normal High School Coach Required: No Beliefs That Will Affect Care: None marital status: Current Living Situation: Spouse current occupational status: employed and retired current occupation: accounting How many Children do You have: 2 Feels Safe at Home: Yes Childhood Exposure to Second-Hand Smoke: No caffeine: No during the past year weight has: remained stable Dental Care, Regularly: Yes Physical Activity Frequency: 3-4 Times per Week Seatbelt Use: always Sunscreen Use: No Review of Systems Review of Systems: All systems reviewed & are unremarkable except as noted in HPI & below Physical Exam Constitutional: + acute distress and + obese Eyes: EOM intact bilaterally; no conjunctival abnormality ENMT: external ear and nose normal, oropharynx normal Neck: trachea midline, no thyromegaly normal visual inspection Respiratory: + respiratory distress, + labored breathing, + cough and + tachypneic Auscultation: + crackles; no wheezes Cardiovascular: RRR, no murmur, no edema Gastrointestinal (Abdomen): Inspection/Auscultation: abdomen normal to inspection; abdomen not distended Percussion/Palpation: abdomen soft; abdomen nontender, no guarding and abdomen not rigid Musculoskeletal: no cyanosis or clubbing, extremities motor strength 5/5 Skin: no rashes, warm and dry Neurologic: moves all extremities and awake Psychiatric: Orientation: alert, oriented to person and cooperative Results & Data Results & Data ([facility]) Vital Signs (Past 12 Hours) Vital Signs Temp Pulse Resp BP Pulse Ox O2 Del Method O2 Flow Rate 07/03/22 10:45 82/43 L 07/03/22 10:45 76 26 H 98 07/03/22 10:31 113/74 07/03/22 10:31 84 26 H 99 07/03/22 10:15 79 28 H 98 07/03/22 10:15 105/53 L 07/03/22 10:06 103/60 07/03/22 10:06 79 19 97 07/03/22 10:00 81 22 95 07/03/22 10:00 82/68 L 07/03/22 09:44 98 BiPAP 07/03/22 09:50 78 26 H 96 07/03/22 09:49 84/45 L 07/03/22 09:49 77 23 95 07/03/22 09:47 73 29 H 94 07/03/22 09:47 76/49 L 07/03/22 09:40 79 27 H 91 07/03/22 09:40 94/45 L 07/03/22 09:53 120 H 26 H 94 07/03/22 09:20 37.1 C 77 32 H 75/41 L 88 L Non-rebreather 15 FiO2 07/03/22 10:45 07/03/22 10:45 07/03/22 10:31 07/03/22 10:31 07/03/22 10:15 07/03/22 10:15 07/03/22 10:06 07/03/22 10:06 07/03/22 10:00 07/03/22 10:00 07/03/22 09:44 07/03/22 09:50 07/03/22 09:49 07/03/22 09:49 07/03/22 09:47 07/03/22 09:47 07/03/22 09:40 07/03/22 09:40 07/03/22 09:53 100 07/03/22 09:20 Code Status & VTE Plan VTE Prophylaxis Plan VTE Prophylaxis will be ordered: Yes PG Care Time/CCT Total # of Minutes Spent Total Time Spent with Patient: Total time spent is greater than 50% in coordination of care (as documented) at patient's floor/unit and/or counseling patient: Coding Level of Care Code 63942 Initial Inpt Care Lvl 3 Diagnoses Community acquired pneumonia J18.9 COVID-19 U07.1 Hypotension I95.9 ARF (acute renal failure) N17.9 Diabetes mellitus, type 2 E11.9 Hypertension I10 Gout M10.9 Gastroesophageal reflux disease K21.9 DVT prophylaxis Z29.9
[2022-07-03] MEDS ORDERED: ONDANSETRON INJ 2 MG/ML 2 ML VIAL IV PRN (13:26)
[2022-07-03] MEDS ORDERED: ACETAMINOPHEN 325 MG TAB PO PRN (13:26)
[2022-07-03] MEDS ORDERED: GLUCOSE 10 TAB/TUBE PO PRN (13:26)
[2022-07-03] MEDS ORDERED: GLUCAGON FOR INJ 1 MG VIAL SQ PRN (13:26)
[2022-07-03] MEDS ORDERED: GLUCOSE 40% GEL 15 GM TUBE PO PRN (13:26)
[2022-07-03] MEDS ORDERED: DEXTROSE 50% 50 ML SYRINGE IV PRN (13:26)
[2022-07-03] MEDS ORDERED: CARBOHYDRATES FOR HYPOGLYCEMIA PO PRN (13:26)
[2022-07-03] MEDS: CHLORASEPTIC 1.4% SOLN 180 ML BTL MT PRN ×2 (15:09→18:45)
[2022-07-03] MEDS: INSULIN ASPART PER UNIT SC SCH ×3 (16:05→21:49)
[2022-07-03] MEDS: ALBUT/IPRATROP 3MG/0.5MG NEB 3 ML VIAL NEB PRN ×2 (17:08→23:30)
[2022-07-03] MEDS: NICOTINE 21 MG/24 HR TDSY TD SCH (19:56)
--- NOTE | 2022-07-03 20:19 | Ultrasound Report ---
US renal/blad retro comp HISTORY: 76 years-old Male NETTE acute kidney injury COMPARISON: None TECHNIQUE: Multiple real-time sonographic images of the kidneys and urinary bladder were obtained ass essing grayscale appearance and color flow FINDINGS: The right kidney measures 11.2 cm in length. The left kidney measures 12.4 cm in length. No renal mert culi, hydronephrosis or suspicious mass lesion. Cortical medullary differentiation is preserved bilat erally. Partial distention of the urinary bladder. Ureteral jets are not identified. Hepatic steatosis. IMPRESSION: No renal calculi or hydronephrosis. ACT 112: Negative or not required by law. The above report was generated using voice recognition software. It may contain grammatical, syntax o r spelling errors. Electronically signed by: Dung Jara M.D. 07/03/2022 8:18 PM
[2022-07-03 21:15] LABS: Appearance Urine Clear (Clear); Bacteria Urine Automated Negative (Negative); Bilirubin Urine Negative (Negative); Blood Urine Negative (Negative); Color Urine Dark Yellow; Epithelial Cell Urine Auto >30 /lpf (0-5); Glucose Urine UA 1+ (Negative); Ketones Urine Negative (Negative); Leukocyte Esterase Urine Negative (Negative); Nitrite Urine Negative (Negative); Protein Urine 1+ (Negative); RBC Urine Automated 0-4 /hpf (0-4); Specific Gravity Urine 1.022 (1.000-1.030); Urobilinogen Urine Negative (Negative)
[2022-07-03] MEDS: SIMVASTATIN 20 MG TAB PO SCH (22:05)
[2022-07-03] MEDS: HEPARIN SOD 5,000 UNIT/0.5 ML VIAL SQ SCH (22:06)
[2022-07-03] MEDS: PANTOprazole 40 MG TAB PO SCH (22:44)
[2022-07-04] MEDS: SODIUM CHLORIDE 0.9% 1000ML 1,000 ML IV SCH ×3 (03:32→19:35)
[2022-07-04 06:40] LABS: Hematocrit (blood only) 34.5 % (40.1-51.0); Hemoglobin 11.2 g/dl (14.0-18.0); Mean Corpuscular Hgb Conc 32.5 g/dL (32.0-36.0); Mean Corpuscular Volume 92.5 fL (80.0-100.0); Mean Platelet Volume 10.3 fL (9.4-12.4); Platelet Count 156 K/uL (130-400); RDW Coefficient of Variation 13.8 % (11.5-14.5); RDW Standard Deviation 47.3 fL (36.4-46.3); Red Blood Count 3.73 M/uL (4.63-6.08); White Blood Count 7.99 K/ul (4.8-10.8)
--- NOTE | 2022-07-04 07:14 | Ultrasound Report ---
BILATERAL LOWER EXTREMITY VENOUS DOPPLER CLINICAL HISTORY: Hypoxemia out of proportion to parenchymal dis. COMPARISON STUDY: No previous studies for comparison. TECHNIQUE: Sonography of the deep venous system of the bilateral lower extremities was performed. Co mpression and augmentation were evaluated. FINDINGS: The bilateral common femoral, superficial femoral and popliteal veins were compressible. A ugmentation was normal. Flow was shown within the deep calf vessels. Note is made of a 4.9 x 1.3 x 1. 9 cm elongated hypoechoic focus of the medial left thigh, adjacent to the femoral artery and vein. Th is contains no color flow. IMPRESSION: 1. No evidence of deep venous thrombus within the bilateral lower extremities. 2. 4.9 x 1.3 x 1.9 cm hypoechoic focus within the deep soft tissues of the medial left thigh, adjacen t to the femoral artery and vein. This contains no color flow. This is indeterminate and could reflec t a hematoma or nonspecific soft tissue mass. A follow-up ultrasound in 3 months is recommended. ACT 112: Negative or not required by law. Electronically signed by: Shaka Salvador M.D. 07/04/2022 7:12 AM
[2022-07-04 07:23] LABS: BUN Creatinine Ratio 23.3 (10-20); Calcium 8.3 mg/dl (8.5-10.1); Creatinine Clr Calc Pharmacy 43.3 ml/min; Est GFR (African American) 42.9 ml/min; Magnesium 1.9 mg/dl (1.7-2.4); Potassium 4.4 mmol/L (3.5-5.1)
[2022-07-04] MEDS ORDERED: SODIUM CHLORIDE 0.65% NA SOLN 45 ML (OCEAN) ONE (08:10)
[2022-07-04] MEDS: INSULIN ASPART PER UNIT SC SCH ×4 (08:36→21:13)
[2022-07-04] MEDS: AZITHROMYCIN 500 MG in DEXTROSE 5% 250 ML IV SCH (08:47)
[2022-07-04] MEDS: cefTRIAXone SODIUM 2,000 MG in DEXTROSE 5% 50 ML IV SCH (08:48)
[2022-07-04] MEDS: HEPARIN SOD 5,000 UNIT/0.5 ML VIAL SQ SCH ×2 (08:49→20:42)
[2022-07-04] MEDS: NICOTINE 21 MG/24 HR TDSY TD SCH (08:50)
[2022-07-04] MEDS: allopurinoL 100 MG TAB PO SCH (08:51)
--- NOTE | 2022-07-04 08:52 | Hospitalist Progress Note ---
Date of Service July 04, 2022 Assessment & Plan (1) COVID-19: Plan: First symptoms on Saturday, 06/29. Vaccinated and boosted. Pt may have covid pneumonia, with severe hypoxia, is in agreement to decadron and remdesivir, will check crp and if elevated with oxygen requirement will consider toci or baricitinib. still needing bipap at times to rest , otherwise on high flow (2) Community acquired pneumonia: Plan: Procal is 44, and CXR suggests a LLL pneumonia, - Continue ceftriaxone/azithromycin - MRSA swab ordered - BiPap and supplemental high flow O2 PRN - DuoNebs PRN (3) Hypotension: Plan: BP was 75/41. Has come up to 100/60 with 1L bolus and second liter presently running. Due to both hypovolemia as well as sepsis. Lactate was 3.4 in the ER. - resolved (4) ARF (acute renal failure): Plan: Baseline CKD Stage III with Cr. ~1.2. On admission, Cr up to 4. Likely pre-renal worsened by home ACEi. -improved - UA ordered with microscopy - Renal/bladder u/s without obstructive uropathy (5) Diabetes mellitus, type 2: Plan: Last A1c 7.0% in 12/2021. Not on DM meds. - Sliding scale insulin (6) Hypertension: Plan: Now with hypotension. - Hold all HTN meds - Monitor (7) Gout: Plan: No flare at present. - Hold allopurinol while with NETTE. (8) Gastroesophageal reflux disease: Plan: - Continue PPI (9) DVT prophylaxis: Plan: Heparin 5,000 units SQ Q12h LE doppler no DVT but 4.9 x 1.3 x 1.9 cm hypoechoic focus within the deep soft tissues of the medial left thigh, adjacent to the femoral artery and vein. This contains no color flow. This is indeterminate and could reflect a hematoma or nonspecific soft tissue mass. A follow-up ultrasound in 3 months is recommended. Conditional code - Patient adamant that he does not want intubation/ventilation even for 2-3 days. Explained that in code situation, he will not spontaneously breath, and we would need to secure airway to ensure oxygenation and no aspiration. In event of a code, he is willing to have short-term CPR/defibrillation (~5 minutes), and if we cannot resuscitate him, code would be stopped. He is in agreement with this plan. and daughter present for conversation. Admission and Anticipated Discharge Date Admission Date: July 03, 2022 Subjective pt is much more comfortable but is with high oxygen requirements, pt is within window to treat for covid, added decadron and remdesivir, Pt agrees to treatment Review of Systems Review of Systems: Moderate distress and fatigue no headache, no visual changes no speech or swallowing issues, no loss of taste or smell no chest pain, pressure or palpitations shortness of breath, non productive cough no abdominal pain, nausea or vomiting,no diarrhea or constipation no dysuria, hematuria or frequency no focal joint pain or swelling no back pain, CVA tenderness or radicular pain no bruising, bleeding or rashes no focal signs of weakness or numbness or altered sensation no complaints of anxiety or depression.. Physical Exam Physical Exam: The patient appeared well nourished and normally developed. Vital signs as documented. acute respiratory failure with hypoxia Head exam is normocephalic atraumatic Neck is without JVD, thyromegaly, or carotid bruits. Lungs are with coarse rales in all lung zones not focal, no wheeze Cardiac exam, Rhythm is regular.. No murmurs, rubs or gallops. Abdominal exam reveals normal bowel sounds, soft non tender, no masses Extremities are nonedematous and both pedal pulses are present Neurologic exam is alert and oriented, no focal loss of strength or sensation Skin is without bruises or rashes Psychologically is without concerns for anxiety or depression.. Results & Data Results & Data ([facility]) Vital Signs (Past 12 Hours) Vital Signs Temp Pulse Pulse Resp BP BP Pulse Ox 07/04/22 07:34 97.9 F 80 18 109/68 97 07/04/22 07:01 82 24 95 07/04/22 03:51 89 20 95 07/04/22 03:16 97.9 F 90 18 147/79 H 100 07/03/22 23:31 79 22 91 07/03/22 23:26 79 22 91 07/03/22 22:45 98.6 F 22 128/69 90 O2 Del Method O2 Flow Rate FiO2 07/04/22 07:34 BiPAP 07/04/22 07:01 50 07/04/22 03:51 50 07/04/22 03:16 BiPAP 07/03/22 23:31 50 07/03/22 23:26 50 07/03/22 22:45 Oxymask 15 PG Care Time/CCT Total # of Minutes Spent Total Time Spent with Patient: Total time spent is greater than 50% in coordination of care (as documented) at patient's floor/unit and/or counseling patient: Coding Level of Care Code 90888 Subseq Hosp Care Lvl 3 Diagnoses COVID-19 U07.1 Community acquired pneumonia J18.9 Hypotension I95.9 ARF (acute renal failure) N17.9 Diabetes mellitus, type 2 E11.9 Hypertension I10 Gout M10.9 Gastroesophageal reflux disease K21.9 DVT prophylaxis Z29.9
[2022-07-04] MEDS: ALBUT/IPRATROP 3MG/0.5MG NEB 3 ML VIAL NEB PRN ×2 (09:18→23:27)
[2022-07-04] MEDS: dexAMETHasone 6 MG in SYRINGE 0 ML IV SCH (10:16)
[2022-07-04] MEDS: INSULIN HUMAN NPH SC SCH (10:17)
--- NOTE | 2022-07-04 10:42 | XRay Report ---
XR chest 1V portable CLINICAL HISTORY: Pneumonia. COMPARISON STUDY: Chest radiograph July 03, 2022. FINDINGS: Elevation of the left hemidiaphragm is noted. There is moderate cardiomegaly. Left mid and lower lung airspace opacity persists. No evidence for pulmonary edema. IMPRESSION: Persistent left mid and lower lung airspace opacity suggestive of pneumonia. Continued ra diographic follow up to ensure resolution is recommended. ACT 112: Negative or not required by law. Electronically signed by: Shaka Salvador M.D. 07/04/2022 10:41 AM
--- NOTE | 2022-07-04 17:42 | Electrocardiogram Report ---
Test Reason : Blood Pressure : / mmHG Vent. Rate : 077 BPM Atrial Rate : 077 BPM P-R Int : 190 ms QRS Dur : 082 ms QT Int : 356 ms P-R-T Axes : 017 006 010 degrees QTc Int : 402 ms Normal sinus rhythm Normal ECG No previous ECGs available Confirmed by Tony Morley ([id number]) on 07/04/2022 5:42:26 PM Referred By: REFERRED SELF Confirmed By:Ralf Morley
[2022-07-04] MEDS ORDERED: REMDESIVIR 200 MG in SODIUM CHLORIDE 0.9% 210 ML IV ONE (20:00)
[2022-07-04] MEDS: PANTOprazole 40 MG TAB PO SCH (21:40)
[2022-07-04] MEDS: SIMVASTATIN 20 MG TAB PO SCH (21:40)
[2022-07-05] MEDS: SODIUM CHLORIDE 0.9% 1000ML 1,000 ML IV SCH ×2 (03:35→12:12)
[2022-07-05 07:58] LABS: Albumin Globulin Ratio 1.1 (0.9-2); Albumin Level 3.1 gm/dl (3.4-5.0); BUN Creatinine Ratio 29.7 (10-20); Bilirubin,Total 0.4 mg/dl (0.2-1.0); C Reactive Protein 13.41 mg/dl (0-0.5); Calcium 8.4 mg/dl (8.5-10.1); Creatinine Clr Calc Pharmacy 68.8 ml/min; Est GFR (African American) 74.9 ml/min; Est GFR (Non-African American) 64.6 ml/min; Globulin 2.8 gm/dl (2.5-4.0); Potassium 4.6 mmol/L (3.5-5.1); Total Protein 5.9 gm/dl (6.0-8.3)
--- NOTE | 2022-07-05 08:30 | Hospitalist Progress Note ---
Date of Service July 05, 2022 Assessment & Plan (1) COVID-19: Plan: First symptoms on Saturday, 06/29. Vaccinated and boosted. covid pneumonia, with severe hypoxia, is in agreement to decadron and remdesivir, crp 13 with oxygen requirement will start baricitinib. still needing bipap at times to rest , otherwise on high flow encouraged proning (2) Acute respiratory failure with hypoxia: Plan: from covid pneumonia and possible bacterial superinfection requires significant oxygen supplementation (3) Community acquired pneumonia: Plan: Procal is 44, and CXR suggests a LLL pneumonia, - Continue ceftriaxone/azithromycin - MRSA swab ordered - BiPap and supplemental high flow O2 PRN - DuoNebs PRN (4) Hypotension: Plan: BP was 75/41. Has come up to 100/60 with 1L bolus and second liter presently running. Due to both hypovolemia as well as sepsis. Lactate was 3.4 in the ER. - resolved (5) ARF (acute renal failure): Plan: Baseline CKD Stage III with Cr. ~1.2. On admission, Cr up to 4. Likely pre-renal worsened by home ACEi. -improved - UA ordered with microscopy - Renal/bladder u/s without obstructive uropathy (6) Diabetes mellitus, type 2: Plan: Last A1c 7.0% in 12/2021 did add NPH to cover the decadron induced steroid associated hypoglycemia - Sliding scale insulin (7) Hypertension: Plan: Now with hypotension. - Hold all HTN meds - Monitor (8) Gout: Plan: No flare at present. - Hold allopurinol while with NETTE. (9) Gastroesophageal reflux disease: Plan: - Continue PPI (10) DVT prophylaxis: Plan: Heparin 5,000 units SQ Q12h LE doppler no DVT but 4.9 x 1.3 x 1.9 cm hypoechoic focus within the deep soft tissues of the medial left thigh, adjacent to the femoral artery and vein. This contains no color flow. This is indeterminate and could reflect a hematoma or nonspecific soft tissue mass. A follow-up ultrasound in 3 months is recommended. Conditional code - Patient adamant that he does not want intubation/ventilation even for 2-3 days. Explained that in code situation, he will not spontaneously breath, and we would need to secure airway to ensure oxygenation and no aspiration. In event of a code, he is willing to have short-term CPR/defibrillation (~5 minutes), and if we cannot resuscitate him, code would be stopped. He is in agreement with this plan. and daughter present for conversation. Admission and Anticipated Discharge Date Admission Date: July 03, 2022 Subjective pt is much more comfortable but continues with high oxygen requirements, pt is within window to treat for covid, added decadron and remdesivir, Initially the pt refused treatment, after discussion today is in agreement and also in agreement with baricitinib these both started 07/05/22 as he has oxygen requirement Review of Systems Review of Systems: Moderate distress and fatigue no headache, no visual changes no speech or swallowing issues, no loss of taste or smell no chest pain, pressure or palpitations shortness of breath, non productive cough no abdominal pain, nausea or vomiting,no diarrhea or constipation no dysuria, hematuria or frequency no focal joint pain or swelling no back pain, CVA tenderness or radicular pain no bruising, bleeding or rashes no focal signs of weakness or numbness or altered sensation no complaints of anxiety or depression.. Physical Exam Physical Exam: The patient appeared well nourished and normally developed. Vital signs as documented. acute respiratory failure with hypoxia Head exam is normocephalic atraumatic Neck is without JVD, thyromegaly, or carotid bruits. Lungs are with coarse rales in all lung zones not focal, no wheeze Cardiac exam, Rhythm is regular.. No murmurs, rubs or gallops. Abdominal exam reveals normal bowel sounds, soft non tender, no masses Extremities are nonedematous and both pedal pulses are present Neurologic exam is alert and oriented, no focal loss of strength or sensation Skin is without bruises or rashes Psychologically is without concerns for anxiety or depression.. Results & Data Results & Data ([facility]) Vital Signs (Past 12 Hours) Vital Signs Temp Pulse Pulse Resp BP Pulse Ox O2 Del Method 07/05/22 03:40 98.6 F 87 22 137/70 92 High Flow Nasal Cannula 07/04/22 23:50 98.2 F 87 18 127/68 97 BiPAP 07/04/22 23:39 81 07/04/22 23:34 91 H 28 H 97 BiPAP 07/04/22 23:29 91 H 28 H 96 O2 Flow Rate FiO2 07/05/22 03:40 10 07/04/22 23:50 07/04/22 23:39 07/04/22 23:34 40 07/04/22 23:29 40 PG Care Time/CCT Total # of Minutes Spent Total Time Spent with Patient: Total time spent is greater than 50% in coordination of care (as documented) at patient's floor/unit and/or counseling patient: Coding Level of Care Code 00896 Subseq Hosp Care Lvl 3 Diagnoses COVID-19 U07.1 Acute respiratory failure with hypoxia J96.01 Community acquired pneumonia J18.9 Hypotension I95.9 ARF (acute renal failure) N17.9 Diabetes mellitus, type 2 E11.9 Hypertension I10 Gout M10.9 Gastroesophageal reflux disease K21.9 DVT prophylaxis Z29.9
[2022-07-05] MEDS: cefTRIAXone SODIUM 2,000 MG in DEXTROSE 5% 50 ML IV SCH (08:44)
[2022-07-05] MEDS: AZITHROMYCIN 500 MG in DEXTROSE 5% 250 ML IV SCH (08:46)
[2022-07-05] MEDS: HEPARIN SOD 5,000 UNIT/0.5 ML VIAL SQ SCH ×2 (08:49→09:19)
[2022-07-05] MEDS: allopurinoL 100 MG TAB PO SCH (08:49)
[2022-07-05] MEDS: NICOTINE 21 MG/24 HR TDSY TD SCH (08:50)
[2022-07-05] MEDS: INSULIN ASPART PER UNIT SC SCH ×4 (09:06→21:46)
[2022-07-05] MEDS: INSULIN HUMAN NPH SC SCH (09:07)
[2022-07-05] MEDS: dexAMETHasone 6 MG in SYRINGE 0 ML IV SCH (09:15)
[2022-07-05] MEDS: ENOXAPARIN INJ 30 MG/0.3 ML SYR SQ SCH ×2 (12:23→21:57)
--- NOTE | 2022-07-05 12:34 | XRay Report ---
SINGLE VIEW CHEST CLINICAL HISTORY: Covid. FINDINGS: 2 AP, portable, upright chest radiographs are compared to study dated 07/04/2022. The heart i s enlarged noting atherosclerotic calcification of the thoracic aorta. The pulmonary vasculature is n oncongested. The airspace consolidation is again seen in the left mid to lower lung. The right lung a ppears clear noting bibasilar atelectasis. No large pleural effusion or pneumothorax is identify. The skeletal structures are osteopenic. The bony thorax is grossly intact. IMPRESSION: 1. Airspace consolidation in the left lower lung is similar to previous. Correlate clinically for fred dence of pneumonia. Radiographic follow-up to resolution is recommended. 2. Cardiomegaly without radiographic evidence of congestive failure. ACT 112: Negative or not required by law. Electronically signed by: Andi Andrews M.D. 07/05/2022 12:32 PM
[2022-07-05] MEDS ORDERED: FUROSEMIDE INJ 20 MG/2 ML VIAL IV ONE (12:55)
[2022-07-05] MEDS ORDERED: BARICITINIB COMMUNICATION ONE (12:56)
[2022-07-05] MEDS: 4mg Daily x 14 days (eGFR >60 mL/min/1.73m2) PO SCH (14:11)
[2022-07-05] MEDS ORDERED: REMDESIVIR 200 MG in SODIUM CHLORIDE 0.9% 210 ML IV STA (15:52)
[2022-07-05] MEDS ORDERED: REMDESIVIR 100 MG in SODIUM CHLORIDE 0.9% 230 ML IV SCH (20:00)
[2022-07-05] MEDS: SIMVASTATIN 20 MG TAB PO SCH (21:56)
[2022-07-05] MEDS: PANTOprazole 40 MG TAB PO SCH (21:56)
[2022-07-06] MEDS: INSULIN ASPART PER UNIT SC SCH ×4 (08:14→20:29)
[2022-07-06] MEDS: INSULIN HUMAN NPH SC SCH (08:17)
[2022-07-06] MEDS: cefTRIAXone SODIUM 2,000 MG in DEXTROSE 5% 50 ML IV SCH (08:57)
[2022-07-06] MEDS: AZITHROMYCIN 500 MG in DEXTROSE 5% 250 ML IV SCH (08:57)
[2022-07-06] MEDS: dexAMETHasone 6 MG in SYRINGE 0 ML IV SCH (08:58)
[2022-07-06] MEDS: NICOTINE 21 MG/24 HR TDSY TD SCH (08:59)
[2022-07-06] MEDS: allopurinoL 100 MG TAB PO SCH (09:00)
[2022-07-06] MEDS: ENOXAPARIN INJ 30 MG/0.3 ML SYR SQ SCH ×2 (09:00→20:11)
[2022-07-06] MEDS: 4mg Daily x 14 days (eGFR >60 mL/min/1.73m2) PO SCH (11:13)
[2022-07-06] MEDS ORDERED: OPTIRAY 300 100mL IV ONE (12:12)
--- NOTE | 2022-07-06 12:26 | CT Scan Report ---
CT ANGIOGRAM OF THE CHEST CLINICAL HISTORY: Dyspnea. Covid. COMPARISON STUDY: Chest x-ray dated 07/05/2022. TECHNIQUE: Following the IV administration of 93 cc of Optiray 320, CT angiogram of the chest was per formed from the upper abdomen to the thoracic inlet utilizing the pulmonary embolus protocol. Images are reviewed in the axial, sagittal, and coronal planes. 3-D MIPS images are created and assessed. IV contrast was administered without complication. A dose lowering technique was utilized adhering to the principles of ALARA. The examination is degraded by motion artifact. There is suboptimal contrast opacification of the pulmonary arteries. FINDINGS: Thyroid: Imaged portions of the thyroid gland are normal in size and attenuation. Thoracic aorta: There is mild atherosclerotic calcification of the thoracic aorta, which is normal in caliber and demonstrates standard 3-vessel arch anatomy. No dissection is seen. Pulmonary vasculature: The pulmonary trunk is mildly dilated measuring 3.4 cm diameter. This suggests pulmonary artery hypertension. There are no filling defects identified in main or lobar pulmonary br anches to suggest pulmonary embolus. The segmental and subsegmental branches could not be assessed du e to suboptimal contrast opacification and motion artifact. Heart: The heart is top normal in size and without pericardial effusion. Lungs and pleural spaces: Evaluation of the lung parenchyma is compromised by motion artifact. Multif ocal airspace consolidation is seen throughout the left lung, greatest in the lingula and left lower lobe. Milder airspace consolidation is seen in the right lung. Dependent atelectasis is observed at t he lung bases. No pleural effusion is identified. The trachea and central airways appear clear. Mediastinum: Numerous mildly enlarged mediastinal lymph nodes measure up to 12 mm short axis. Sheryl: Mildly enlarged hilar nodes measure up to 12 mm short axis. The coronary arteries are densely c alcified. Axillae: There is no axillary lymphadenopathy. Upper abdomen: There is a large hiatal hernia. The liver appears a steatotic. Skeletal structures: The skeletal structures are osteopenic. Degenerative change and mild hyperkyphos is is noted in the thoracic spine there No lytic or blastic bony lesions are seen. IMPRESSION: 1. The examination is significantly degraded by motion artifact. There is suboptimal contrast opacifi cation of the pulmonary arteries. 2. There is no evidence of central pulmonary embolus in the main or lobar pulmonary arteries. The seg mental and subsegmental branches cannot be assessed. 3. Multifocal airspace consolidation is typical for pneumonia. Radiographic follow-up to resolution i s recommended. 4. Large hiatal hernia. 5. Mildly enlarged mediastinal and hilar nodes are likely reactive. 6. Hepatic steatosis. 7. Additional findings as above. ACT 112: Negative or not required by law. Electronically signed by: Andi Andrews M.D. 07/06/2022 12:24 PM
--- NOTE | 2022-07-06 17:24 | Hospitalist Progress Note ---
Date of Service July 06, 2022 Assessment & Plan (1) COVID-19: Plan: First symptoms on Saturday, 06/29. Vaccinated and boosted. covid pneumonia, with severe hypoxia, is in agreement to decadron and remdesivir, crp 13 with oxygen requirement will start baricitinib.07/05 CTA 07/06 no PE and only pneuonia present with ground glass still needing bipap at times to rest , otherwise on high flow encouraged proning (2) Acute respiratory failure with hypoxia: Plan: from covid pneumonia and possible bacterial superinfection requires significant oxygen supplementation (3) Community acquired pneumonia: Plan: Procal is 44, and CXR suggests a LLL pneumonia, - Continue ceftriaxone/azithromycin - MRSA swab ordered - BiPap and supplemental high flow O2 PRN - DuoNebs PRN (4) Hypotension: Plan: resolved (5) ARF (acute renal failure): Plan: Baseline CKD Stage III with Cr. ~1.2. On admission, Cr up to 4. Likely pre-renal worsened by home ACEi. -improved - UA ordered with microscopy - Renal/bladder u/s without obstructive uropathy (6) Diabetes mellitus, type 2: Plan: Last A1c 7.0% in 12/2021 did add NPH to cover the decadron induced steroid associated hypoglycemia - Sliding scale insulin (7) Hypertension: Plan: Now with hypotension. - Hold all HTN meds - remains low (8) Gout: Plan: No flare at present. - Hold allopurinol while with NETTE. (9) Gastroesophageal reflux disease: Plan: - Continue PPI (10) DVT prophylaxis: Plan: Heparin 5,000 units SQ Q12h LE doppler no DVT but 4.9 x 1.3 x 1.9 cm hypoechoic focus within the deep soft tissues of the medial left thigh, adjacent to the femoral artery and vein. This contains no color flow. This is indeterminate and could reflect a hematoma or nonspecific soft tissue mass. A follow-up ultrasound in 3 months is recommended. Conditional code - Patient adamant that he does not want intubation/ventilation even for 2-3 days. Explained that in code situation, he will not spontaneously breath, and we would need to secure airway to ensure oxygenation and no aspiration. In event of a code, he is willing to have short-term CPR/defibrillation (~5 minutes), and if we cannot resuscitate him, code would be stopped. He is in agreement with this plan. and daughter present for conversation. Admission and Anticipated Discharge Date Admission Date: July 03, 2022 Subjective pt is much more comfortable but continues with high oxygen requirements, decadron and remdesivir, continue Initially the pt refused treatment, after discussion 07/05 is in agreement and also in agreement with baricitinib CTA of chest without findings other that pneumonia no PE, continue treatment course add low dose daily lasxi Review of Systems Review of Systems: Moderate distress and fatigue no headache, no visual changes no speech or swallowing issues, no loss of taste or smell no chest pain, pressure or palpitations shortness of breath, non productive cough no abdominal pain, nausea or vomiting,no diarrhea or constipation no dysuria, hematuria or frequency no focal joint pain or swelling no back pain, CVA tenderness or radicular pain no bruising, bleeding or rashes no focal signs of weakness or numbness or altered sensation no complaints of anxiety or depression.. Physical Exam Physical Exam: The patient appeared well nourished and normally developed. Vital signs as documented. acute respiratory failure with hypoxia Head exam is normocephalic atraumatic Neck is without JVD, thyromegaly, or carotid bruits. Lungs are with coarse rales in all lung zones not focal, no wheeze Cardiac exam, Rhythm is regular.. No murmurs, rubs or gallops. Abdominal exam reveals normal bowel sounds, soft non tender, no masses Extremities are nonedematous and both pedal pulses are present Neurologic exam is alert and oriented, no focal loss of strength or sensation Skin is without bruises or rashes Psychologically is without concerns for anxiety or depression.. Results & Data Results & Data ([facility]) Vital Signs (Past 12 Hours) Vital Signs Temp Pulse Pulse Resp BP Pulse Ox O2 Del Method 07/06/22 16:00 73 07/06/22 08:00 High Flow Nasal Cannula 07/06/22 14:48 97.7 F 80 22 127/80 94 High Flow Nasal Cannula 07/06/22 11:14 97.7 F 85 22 126/77 93 High Flow Nasal Cannula 07/06/22 08:00 83 07/06/22 06:55 97.7 F 80 22 136/76 94 High Flow Nasal Cannula O2 Flow Rate 07/06/22 16:00 07/06/22 08:00 10 07/06/22 14:48 10 07/06/22 11:14 10 07/06/22 08:00 07/06/22 06:55 10 PG Care Time/CCT Total # of Minutes Spent Total Time Spent with Patient: Total time spent is greater than 50% in coordination of care (as documented) at patient's floor/unit and/or counseling patient: Coding Level of Care Code 50068 Subseq Hosp Care Lvl 3 Diagnoses COVID-19 U07.1 Acute respiratory failure with hypoxia J96.01 Community acquired pneumonia J18.9 Hypotension I95.9 ARF (acute renal failure) N17.9 Diabetes mellitus, type 2 E11.9 Hypertension I10 Gout M10.9 Gastroesophageal reflux disease K21.9 DVT prophylaxis Z29.9
[2022-07-06] MEDS: REMDESIVIR 100 MG in SODIUM CHLORIDE 0.9% 230 ML IV SCH (20:08)
[2022-07-06] MEDS: SIMVASTATIN 20 MG TAB PO SCH (20:11)
[2022-07-06] MEDS: PANTOprazole 40 MG TAB PO SCH (20:11)
[2022-07-06] MEDS: LORazepam 0.5 MG in SYRINGE 0.25 ML IV PRN (22:54)
[2022-07-07 08:06] LABS: Hematocrit (blood only) 41.4 % (40.1-51.0); Hemoglobin 13.7 g/dl (14.0-18.0); Mean Corpuscular Hemoglobin 29.4 pg (25.0-34.0); Mean Corpuscular Hgb Conc 33.1 g/dL (32.0-36.0); Mean Corpuscular Volume 88.8 fL (80.0-100.0); Platelet Count 288 K/uL (130-400); RDW Coefficient of Variation 13.2 % (11.5-14.5); RDW Standard Deviation 43.1 fL (36.4-46.3); Red Blood Count 4.66 M/uL (4.63-6.08); White Blood Count 6.28 K/ul (4.8-10.8)
[2022-07-07] MEDS: INSULIN ASPART PER UNIT SC SCH ×4 (08:07→20:39)
[2022-07-07] MEDS: INSULIN HUMAN NPH SC SCH (08:09)
[2022-07-07] MEDS: 4mg Daily x 14 days (eGFR >60 mL/min/1.73m2) PO SCH (08:25)
[2022-07-07] MEDS: allopurinoL 100 MG TAB PO SCH (08:25)
[2022-07-07] MEDS: NICOTINE 21 MG/24 HR TDSY TD SCH (08:26)
[2022-07-07] MEDS: ENOXAPARIN INJ 30 MG/0.3 ML SYR SQ SCH ×2 (08:26→20:53)
[2022-07-07] MEDS: dexAMETHasone 6 MG in SYRINGE 0 ML IV SCH (08:27)
[2022-07-07] MEDS: AZITHROMYCIN 500 MG in DEXTROSE 5% 250 ML IV SCH (08:27)
[2022-07-07] MEDS: cefTRIAXone SODIUM 2,000 MG in DEXTROSE 5% 50 ML IV SCH (08:27)
[2022-07-07 08:56] LABS: Albumin Level 3.4 gm/dl (3.4-5.0); BUN Creatinine Ratio 29.8 (10-20); Bilirubin,Total 0.4 mg/dl (0.2-1.0); Calcium 8.8 mg/dl (8.5-10.1); Creatinine Clr Calc Pharmacy 62.6 ml/min; Est GFR (African American) 65.5 ml/min; Est GFR (Non-African American) 56.5 ml/min; Globulin 3.4 gm/dl (2.5-4.0); Potassium 3.6 mmol/L (3.5-5.1); Total Protein 6.8 gm/dl (6.0-8.3)
--- NOTE | 2022-07-07 17:26 | Hospitalist Progress Note ---
Date of Service July 07, 2022 Assessment & Plan (1) COVID-19: Plan: First symptoms on Saturday, 06/29. Vaccinated and boosted. covid pneumonia, with severe hypoxia, is in agreement to decadron and remdesivir, crp 13 with oxygen requirement will start baricitinib.07/05 CTA 07/06 no PE and only pneuonia present with ground glass Patient improving proning incentive spirometry oxygen down to 4 L at this course expect the patient may be improved to go over the next 48 hours (2) Acute respiratory failure with hypoxia: Plan: from covid pneumonia and possible bacterial superinfection Oxygen supplementation is lessening and respiratory failure is resolving (3) Community acquired pneumonia: Plan: Procal is 44, and CXR suggests a LLL pneumonia, - Continue ceftriaxone/azithromycin complete 5-day course - MRSA swab ordered - BiPap and supplemental oxygen is now begin to be weaned - DuoNebs PRN (4) Hypotension: Plan: resolved (5) ARF (acute renal failure): Plan: Baseline CKD Stage III with Cr. ~1.2. On admission, Cr up to 4. Likely pre-renal worsened by home ACEi. -improved - Renal/bladder u/s without obstructive uropathy (6) Diabetes mellitus, type 2: Plan: Last A1c 7.0% in 12/2021 did add NPH to cover the decadron induced steroid associated hypoglycemia - Sliding scale insulin (7) Hypertension: Plan: Now with hypotension. - Hold all HTN meds - remains low (8) Gout: Plan: No flare at present. - Hold allopurinol while with NETTE. (9) Gastroesophageal reflux disease: Plan: - Continue PPI (10) DVT prophylaxis: Plan: Heparin 5,000 units SQ Q12h LE doppler no DVT but 4.9 x 1.3 x 1.9 cm hypoechoic focus within the deep soft tissues of the medial left thigh, adjacent to the femoral artery and vein. This contains no color flow. This is indeterminate and could reflect a hematoma or nonspecific soft tissue mass. A follow-up ultrasound in 3 months is recommended. Conditional code - Patient adamant that he does not want intubation/ventilation even for 2-3 days. Explained that in code situation, he will not spontaneously breath, and we would need to secure airway to ensure oxygenation and no aspiration. In event of a code, he is willing to have short-term CPR/defibrillation (~5 minutes), and if we cannot resuscitate him, code would be stopped. He is in agreement with this plan. and daughter present for conversation. Admission and Anticipated Discharge Date Admission Date: July 03, 2022 Subjective Patient now steadily declining oxygen requirements continuing on decadron and remdesivir, baricitinib Patient continues off of oxygen or reduction he may be able to go home and complete Decadron at home but needing truncating treatment courses for the remdesivir and that baricitinib. Does not seem to have a bacterial pneumonia is not having significant mucus production. CTA of chest without findings other that pneumonia no PE, continue treatment course add low dose daily Lasix Review of Systems Review of Systems: Lessening distress and fatigue no headache, no visual changes no speech or swallowing issues, no loss of taste or smell no chest pain, pressure or palpitations shortness of breath, non productive cough no abdominal pain, nausea or vomiting,no diarrhea or constipation no dysuria, hematuria or frequency no focal joint pain or swelling no back pain, CVA tenderness or radicular pain no bruising, bleeding or rashes no focal signs of weakness or numbness or altered sensation no complaints of anxiety or depression.. Physical Exam Physical Exam: The patient appeared well nourished and normally developed. Vital signs as documented. acute respiratory failure with hypoxia Head exam is normocephalic atraumatic Neck is without JVD, thyromegaly, or carotid bruits. Lungs are with coarse rales in all lung zones not focal, seems there is better air movement on 07/07 Cardiac exam, Rhythm is regular.. No murmurs, rubs or gallops. Abdominal exam reveals normal bowel sounds, soft non tender, no masses Extremities are nonedematous and both pedal pulses are present Neurologic exam is alert and oriented, no focal loss of strength or sensation Skin is without bruises or rashes Psychologically is without concerns for anxiety or depression.. Results & Data Results & Data ([facility]) Vital Signs (Past 12 Hours) Vital Signs Temp Pulse Pulse Resp BP Pulse Ox O2 Del Method 07/07/22 17:01 93 Nasal Cannula 07/07/22 15:00 77 07/07/22 15:44 97.7 F 74 20 131/83 95 Nasal Cannula 07/07/22 08:00 High Flow Nasal Cannula 07/07/22 11:47 98.1 F 95 H 20 126/77 94 Nasal Cannula 07/07/22 09:24 93 Nasal Cannula 07/07/22 07:51 97.7 F 82 22 133/81 93 Nasal Cannula 07/07/22 07:30 66 O2 Flow Rate 07/07/22 17:01 4 07/07/22 15:00 07/07/22 15:44 6.0 07/07/22 08:00 5 07/07/22 11:47 6.0 07/07/22 09:24 5 07/07/22 07:51 10.0 07/07/22 07:30 PG Care Time/CCT Total # of Minutes Spent Total Time Spent with Patient: Total time spent is greater than 50% in coordination of care (as documented) at patient's floor/unit and/or counseling patient: Coding Level of Care Code 87291 Subseq Hosp Care Lvl 2 Diagnoses COVID-19 U07.1 Acute respiratory failure with hypoxia J96.01 Community acquired pneumonia J18.9 Hypotension I95.9 ARF (acute renal failure) N17.9 Diabetes mellitus, type 2 E11.9 Hypertension I10 Gout M10.9 Gastroesophageal reflux disease K21.9 DVT prophylaxis Z29.9
[2022-07-07] MEDS: REMDESIVIR 100 MG in SODIUM CHLORIDE 0.9% 230 ML IV SCH (19:43)
[2022-07-07] MEDS: PANTOprazole 40 MG TAB PO SCH (20:54)
[2022-07-07] MEDS: SIMVASTATIN 20 MG TAB PO SCH (20:54)
[2022-07-07] MEDS: LORazepam 0.5 MG in SYRINGE 0.25 ML IV PRN (23:35)
[2022-07-08] MEDS: INSULIN ASPART PER UNIT SC SCH ×2 (08:28→11:53)
[2022-07-08] MEDS: INSULIN HUMAN NPH SC SCH (08:29)
[2022-07-08] MEDS: dexAMETHasone 6 MG in SYRINGE 0 ML IV SCH (08:40)
[2022-07-08] MEDS: AZITHROMYCIN 500 MG in DEXTROSE 5% 250 ML IV SCH (08:40)
[2022-07-08] MEDS: cefTRIAXone SODIUM 2,000 MG in DEXTROSE 5% 50 ML IV SCH (08:40)
[2022-07-08] MEDS: 4mg Daily x 14 days (eGFR >60 mL/min/1.73m2) PO SCH (08:41)
[2022-07-08] MEDS: ENOXAPARIN INJ 30 MG/0.3 ML SYR SQ SCH (08:41)
[2022-07-08] MEDS: allopurinoL 100 MG TAB PO SCH (08:41)
[2022-07-08] MEDS: NICOTINE 21 MG/24 HR TDSY TD SCH (08:42)
--- NOTE | 2022-07-08 16:46 | Discharge Summary ---
Date of Service July 08, 2022 Admission HPI Per Admitting Provider 76yo M w/ hx of HTN and DM who presents with community-acquired pneumonia. He reports he started to have a sore throat on Saturday and has not felt well since then. He has had decreased PO intake since Saturday as well as his throat has been too sore to eat or drink much. He has also had subjective chills, though no measured fever. He has had some cough, but not productive of sputum. He denies any chest pain, lightheadedness, dizziness, palpitations, nausea or vomiting, diarrhea, constipation, melena, hematochezia. He does have some urinary hesitancy, but does not think it has changed in the last few days. Denies any dysuria, polyuria, or other urinary issues. Principal Diagnosis covid pneumonia acute hypoxic respiratory failure Discharge Exam The patient appeared stable Vital signs as documented. Lungs are coarse but clearing and appear unlabored Cardiac exam, Rhythm is regular.. No murmurs, rubs or gallops. Abdominal exam reveals normal bowel sounds, soft non tender, no masses Extremities are nonedematous and both pedal pulses are normal. Neurologic exam is alert and oriented, no focal loss of strength or sensation Skin is without bruises or rashes Psychologically is without concerns for anxiety or depression. Discharge Data Allergies Allergy/AdvReac Type Severity Reaction Status Date / Time No Known Drug Allergies Allergy Verified 01/02/22 13:02 Consultations 07/03/22 10:45 ED Decision to Admit Stat Ordered Studies 07/03/22 11:33 US renal/blad retro comp Urgent 07/03/22 20:07 US venous doppler LE BI Routine 07/06/22 08:59 CT angio chest PE protocol Routine Hospital Course (1) COVID-19: First symptoms on Saturday, 06/29. Vaccinated and boosted. covid pneumonia, with severe hypoxia, did receive Decadron and remdesivir, crp 13 with oxygen requirement plus baricitinib.07/05 CTA 07/06 no PE and only pneumonia present with ground glass 2 step shows only needs 2 liters with exertion, will have 4 additional days of Decadron (2) Acute respiratory failure with hypoxia: from covid pneumonia and possible bacterial superinfection, will not continue antibioitcs on discharge, did complete 5 doses Oxygen supplementation is lessening and respiratory failure is resolving (3) Community acquired pneumonia: Procal is 44, and CXR suggests a LLL pneumonia, - Continue ceftriaxone/azithromycin complete 5-day course - MRSA swab ordered - BiPap and supplemental oxygen is now begin to be weaned - DuoNebs PRN (4) Hypotension: resolved (5) ARF (acute renal failure): Baseline CKD Stage III with Cr. ~1.2. On admission, Cr up to 4. Likely pre-renal worsened by home ACEi. -improved - Renal/bladder u/s without obstructive uropathy (6) Diabetes mellitus, type 2: Last A1c 7.0% in 12/2021 did add NPH to cover the decadron induced steroid associated hypoglycemia -recommended that the patient have conservative diet until after decadron is completed (7) Hypertension: resume meds at discharge (8) Gout: No flare at present. - allopurinol (9) Gastroesophageal reflux disease: - Continue PPI (10) DVT prophylaxis: LE doppler no DVT but 4.9 x 1.3 x 1.9 cm hypoechoic focus within the deep soft tissues of the medial left thigh, adjacent to the femoral artery and vein. This contains no color flow. This is indeterminate and could reflect a hematoma or nonspecific soft tissue mass. A follow-up ultrasound in 3 months is recommended. clinical task sent to pcp Conditional code - Patient adamant that he does not want intubation/ventilation even for 2-3 days. Explained that in code situation, he will not spontaneously breath, and we would need to secure airway to ensure oxygenation and no aspiration. In event of a code, he is willing to have short-term CPR/defibrillation (~5 minutes), and if we cannot resuscitate him, code would be stopped. He is in agreement with this plan. and daughter present for conversation. Total Time Total Time Spent Total Time Spent (In Minutes): It required greater than 30 minutes to prepare this patient for discharge Discharge Plan Discharge Items Patient Disposition: Home - Self-Care Reason For Visit: COMMUNITY ACQUIRED PNEUMONIA Discharge Diagnosis: covid pneumonia low oxygen level Activity: Per Instructions section Activity Comment: Slowly increase activity, consider off work this week Non-emergency contact: Primary Care Provider Call non-emergency contact if: your symptoms worsen Follow-up/Referrals: Yocasta Bunch DO [Primary Care Provider] - Diet: Regular Addtl Attending Provider Instructions: please rest and recover, consider resting at home this week use oxygen when up and around and consider using at sleep time continue your lung exercises and sleeping on belly please stop smoking Pending Studies at Discharge: No Stand-Alone Forms: My [facility] [employer], Smoking Cessation Medications and DC Order Prescriptions: New nicotine [Nicoderm CQ] 21 mg/24 hr Patch 24 Hour 21 mg transdermal QAM Qty: 14 0RF (DME) Oxygen Home Liters Per Minute See Rx Instructions .Route Qty: 2 0RF Rx Instructions: As directed dexamethasone [Decadron] 6 mg tablet 6 mg PO DAILY Qty: 4 0RF Continued omeprazole 20 mg tablet,delayed release (DR/EC) 20 mg PO DAILY Qty: 90 3RF simvastatin 20 mg tablet 20 mg PO QPM Qty: 90 3RF metoprolol tartrate 50 mg tablet 50 mg PO BID Qty: 180 1RF allopurinol 100 mg tablet 200 mg PO DAILY Qty: 180 3RF Discontinued lisinopril 40 mg tablet 40 mg PO DAILY Qty: 90 3RF amlodipine 10 mg tablet 10 mg PO DAILY Qty: 90 1RF Discharge Orders: Discharge Order (Routine); Ordered 07/08/22 Ordered By: Yfn Mg Admission Data Admit Date/Time: 07/03/22 11:32 Attending Provider: Yfn Mg Admit Provider: Jigar Larson Primary Care Provider: Yocasta Bunch Other Providers: Jigar Larson Other Interventions: Discharge Summary Assessment (RN) Last Done: 07/08/22 13:30 Coding Level of Care Code D/C DAY MANAGEMENT >30 MINS Diagnoses COVID-19 U07.1 Acute respiratory failure with hypoxia J96.01 Community acquired pneumonia J18.9 Hypotension I95.9 ARF (acute renal failure) N17.9 Diabetes mellitus, type 2 E11.9 Hypertension I10 Gout M10.9 Gastroesophageal reflux disease K21.9 DVT prophylaxis Z29.9
== END 2022-07-08 17:39 | disposition home or self-care (01) | DRG 177 ==
LOC: ED 09:13 → SUATTDRO 11:32 → 2S 11:32